=== PATIENT | female | born 1935 | race African-American/Black ===

== ENCOUNTER 2017-03-28 18:51 | Emergency (ER) | payer MEDICARE ==
[2017-03-28 20:10] LABS: Basophils % (Auto) 0.8 % (0.0-1.8); Eosinophils % (Auto) 2.2 % (0.0-4.3); Hematocrit 34.4 % (30.3-42.9); Hemoglobin 11.4 gm/dl (10.1-14.3); Mean Corpuscular HGB Conc 33 % (30-34); Mean Corpuscular Hemoglobin 29 pg (28-32); Mean Corpuscular Volume 88 fl (79-97); Platelet Count 310 K/mm3 (140-440); White Blood Count 9.3 K/mm3 (4.5-11.0)
[2017-03-28 20:28] LABS: Anion Gap 23 mmol/L; BUN/Creatinine Ratio 27.85; Blood Urea Nitrogen 39 mg/dL (7-17); Calcium 9.3 mg/dL (8.4-10.2); Carbon Dioxide 19 mmol/L (22-30); Chloride 93.4 mmol/L (98-107); Glucose 348 mg/dL (65-100); Potassium 5.1 mmol/L (3.6-5.0); Sodium 130 mmol/L (137-145)
[2017-03-28 22:07] VITALS: BP 131/50
[2017-03-28] MEDS ORDERED: MORPHINE IV ONE (22:43)
[2017-03-28] MEDS ORDERED: NACL 0.9% 500 ML 500 ML IV ONE (22:44)
[2017-03-28 23:24] LABS: Bacteria,Urine 1+ /HPF (Negative); Bilirubin,Urine NEG (Negative); Blood,Urine NEG (Negative); Ketones,Urine NEG (Negative); Leukocyte Esterase,Urine NEG (Negative); Mucus,Urine FEW /HPF; Nitrite,Urine NEG (Negative); Protein,Urine <15 mg/dL mg/dL (Negative); RBC,Urine < 1.0 /HPF (0.0-6.0); Urobilinogen,Urine < 2.0 mg/dL (<2.0)
--- NOTE | 2017-03-28 23:40 | Emergency Department Report ---
ED General Adult HPI - General Chief complaint: Hyperglycemia Stated complaint: HBS Time Seen by Provider: 03/28/17 21:59 Source: patient, family Mode of arrival: Ambulatory Limitations: Language Barrier - History of Present Illness Initial comments: Patient is an 81-year-old female past medical history of coronary artery disease and diabetes who presents with elevated blood sugar. Patient is Belarusian speaking and history is obtained by daughter. Patient was taking her blood sugar today and it was in the 300s. Patient was having headache and was lightheaded for the last 3 hours. Nothing makes her symptoms better or worse. Her symptoms are not associated with any nausea or vomiting. Patient has recently had her medications adjusted she does not take any insulin and is only on metformin. She denies having any chest pain, fever, diarrhea or blood in stool. Severity scale (0 -10): 8 - Related Data Allergies Allergy/AdvReac Type Severity Reaction Status Date / Time No Known Allergies Allergy Unverified 10/07/13 09:03 ED Review of Systems ROS: Stated complaint: HBS Other details as noted in HPI Constitutional: weakness. denies: chills, fever Eyes: denies: eye pain, eye discharge, vision change ENT: denies: ear pain, throat pain Respiratory: denies: cough, shortness of breath, wheezing Cardiovascular: denies: chest pain, palpitations Endocrine: no symptoms reported Gastrointestinal: denies: abdominal pain, nausea, diarrhea Genitourinary: denies: urgency, dysuria, discharge Musculoskeletal: denies: back pain, joint swelling, arthralgia Skin: denies: rash, lesions Neurological: headache Psychiatric: denies: anxiety, depression Hematological/Lymphatic: denies: easy bleeding, easy bruising ED Past Medical Hx - Past Medical History Previous Medical History?: Yes Hx Hypertension: Yes Hx Diabetes: Yes Additional medical history: heart pblm - Surgical History Past Surgical History?: Yes Additional Surgical History: heart cath, and tumor removed from abd 10/2016 - Social History Smoking Status: Never Smoker Substance Use Type: None ED Physical Exam - General Limitations: Language Barrier General appearance: alert, in no apparent distress - Head Head exam: Present: atraumatic - Eye Eye exam: Present: normal appearance - ENT ENT exam: Present: mucous membranes moist - Neck Neck exam: Present: normal inspection - Respiratory Respiratory exam: Present: normal lung sounds bilaterally. Absent: respiratory distress - Cardiovascular Cardiovascular Exam: Present: regular rate, normal rhythm. Absent: systolic murmur, diastolic murmur, rubs, gallop - GI/Abdominal GI/Abdominal exam: Present: soft, normal bowel sounds - Extremities Exam Extremities exam: Present: normal inspection - Back Exam Back exam: Present: normal inspection - Psychiatric Psychiatric exam: Present: normal affect, normal mood - Skin Skin exam: Present: warm, dry, intact, normal color. Absent: rash ED Course Vital Signs 03/28/17 03/28/17 19:25 22:05 Temperature 97.4 F L Pulse Rate 88 80 Respiratory 20 14 Rate Blood Pressure 175/75 Blood Pressure 131/50 [Left] O2 Sat by Pulse 99 98 Oximetry - Reevaluation(s) Reevaluation #1: 03/29/17 01:06 Patient is feeling better after morphine. Patient states that she feels good and would likely. Discussed diagnostic positive patient and stated that she needs to follow up with her primary care doctor. Also gave patient some instructions on to reduce her carbohydrate intake. Reevaluation #2: 03/29/17 01:13 Patient's most recent blood sugar is 258. I will send patient home. ED Medical Decision Making - Lab Data Result diagrams: 03/28/17 19:54 03/28/17 19:54 Laboratory Results - last 24 hr 03/28/17 03/28/17 03/28/17 19:42 19:54 19:54 WBC 9.3 RBC 3.90 Hgb 11.4 Hct 34.4 MCV 88 MCH 29 MCHC 33 RDW 13.0 L Plt Count 310 Lymph % (Auto) 31.9 Sevier % (Auto) 11.9 H Eos % (Auto) 2.2 Baso % (Auto) 0.8 Lymph # 3.0 Sevier # 1.1 H Eos # 0.2 Baso # 0.1 Seg Neutrophils % 53.2 Seg Neutrophils # 5.0 VBG pH Sodium 130 L Potassium 5.1 H Chloride 93.4 L Carbon Dioxide 19 L Anion Gap 23 BUN 39 H Creatinine 1.4 H Estimated GFR 36 BUN/Creatinine Ratio 27.85 Glucose 348 H POC Glucose 393 H Calcium 9.3 Troponin T < 0.010 Urine Color Urine Turbidity Urine pH Ur Specific Valentine Urine Protein Urine Glucose (UA) Urine Ketones Urine Blood Urine Nitrite Urine Bilirubin Urine Urobilinogen Ur Leukocyte Esterase Urine WBC (Auto) Urine RBC (Auto) U Epithel Cells (Auto) Urine Bacteria (Auto) Urine Mucus 03/28/17 03/28/17 19:54 23:03 WBC RBC Hgb Hct MCV MCH MCHC RDW Plt Count Lymph % (Auto) Sevier % (Auto) Eos % (Auto) Baso % (Auto) Lymph # Sevier # Eos # Baso # Seg Neutrophils % Seg Neutrophils # VBG pH 7.405 Sodium Potassium Chloride Carbon Dioxide Anion Gap BUN Creatinine Estimated GFR BUN/Creatinine Ratio Glucose POC Glucose Calcium Troponin T Urine Color Straw Urine Turbidity Clear Urine pH 6.0 Ur Specific Valentine 1.006 Urine Protein <15 mg/dl Urine Glucose (UA) >=500 Urine Ketones Neg Urine Blood Neg Urine Nitrite Neg Urine Bilirubin Neg Urine Urobilinogen < 2.0 Ur Leukocyte Esterase Neg Urine WBC (Auto) 1.0 Urine RBC (Auto) < 1.0 U Epithel Cells (Auto) 1.0 Urine Bacteria (Auto) 1+ Urine Mucus Few - EKG Data -: EKG Interpreted by Wa - EKG Data 03/29/17 01:07 Normal sinus rhythm, septal infarct age undetermined no ST segment elevation T- wave flattening in V6 and V5. - Radiology Data Radiology results: image reviewed Chest x-ray shows no acute pulmonary process, no pneumothorax and no cardiomegaly. - Medical Decision Making Chief medical diagnosis: Hyperglycemia Differential medical diagnosis, DKA, HONK, acute kidney injury We'll get CBC, troponin, EKG, CMP, blood gas, chest x-ray Patient just has hyperglycemia will give patient fluids lower lid sugar of less than 300 bolus and patient home with dietary modification instructions. Critical care attestation.: If time is entered above; I have spent that time in minutes in the direct care of this critically ill patient, excluding procedure time. ED Disposition Clinical Impression: Hyperglycemia due to type 2 diabetes mellitus Qualifiers: Diabetes mellitus watermaster insulin use: without shelter use Qualified Code(s ): E11.65 - Type 2 diabetes mellitus with hyperglycemia Disposition: DC-01 TO HOME OR SELFCARE Is pt being admited?: No Does the pt Need Aspirin: No Condition: Good Instructions: Diabetes Mellitus Type 2 in Adults (ED), Meal Planning with Diabetes Exchanges (DC) Referrals: SHANDA VÁZQUEZ MD [Primary Care Provider] - 3-5 Days Time of Disposition: 01:01
--- NOTE | 2017-03-29 08:22 | XRay Report ---
Chest 2 views. History: Shortness of breath. Findings: The heart and lungs reveal no acute or significant abnormalities.
== END 2017-03-29 01:46 | disposition home or self-care (01) ==
LOC: ED 18:51
DX: E11.65 Type 2 diabetes mellitus with hyperglycemia (principal); I10 Essential (primary) hypertension
CPT/HCPCS: 36415; 71020; 80048; 81001; 82805; 82962; 84484; 85025; 93005; 93010; 96374; 99284; J2270; J7040

== ENCOUNTER 2018-11-19 17:19 | Emergency (ER) | payer MEDICARE ==
[2018-11-19] MEDS ORDERED: SOLU-Medrol IV ONE (18:19)
[2018-11-19] MEDS ORDERED: ATROVENT IH ONE (18:19)
[2018-11-19] MEDS ORDERED: PROVENTIL IH ONE (18:19)
--- NOTE | 2018-11-19 18:20 | Emergency Department Report ---
ED General Adult HPI - General Chief complaint: Weakness Stated complaint: HIGH BLOOD SUGAR Time Seen by Provider: 11/19/18 18:01 Source: patient, family, RN notes reviewed Mode of arrival: Ambulatory Limitations: Language Barrier - History of Present Illness Initial comments: Primary care Dr.: Dr. Tay Research Leader: Patient's [id number], Ms. César Tay; [phone] and patient's son, Mr Flash Millan; [phone] This is an 83-year-old female. The patient specifically requested that her family translated for her. 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 Patient was at her primary care doctor's office yesterday, was evaluated for probable influenza. She reports a positive influenza swab, and reports being placed on Tamiflu. She reports left eye pain and swelling and drainage over the past couple days. The symptoms are constant, worsened with palpation, decreased with rest, and do not radiate anywhere. The patient makes no complaint of severe headache, neck pain, chest pain, or abdominal pain. She has a cough and shortness of breath which appeared to be chronic. She denies urinary symptoms. She was prescribed multiple medications, including azithromycin, promethazine, Mucinex, Tylenol, Tamiflu, and prednisone ophthalmic, in addition to an antihist amine. She has not taken the prednisone ophthalmic, but reports compliance with the other medications. In 2017, patient found to have a creatinine of 1.4, with a GFR of 36. -: Gradual, days(s) Location: eyes (left eye) Radiation: non-radiation Improves with: rest Worsens with: movement - Related Data Previous Rx's Medication Instructions Recorded Last Taken Type Albuterol Sulfate [Proair 90 mcg IH Q4HR PRN #2 aer.[email or web address] 11/20/18 Unknown Rx Respiclick] Bacitracin [Bacitracin Ophth] 1 applicatio OP TID #1 tube 11/20/18 Unknown Rx Doxycycline [Vibramycin CAP] 100 mg PO Q12HR #10 capsule 11/20/18 Unknown Rx Allergies Allergy/AdvReac Type Severity Reaction Status Date / Time No Known Allergies Allergy Unverified 10/07/13 09:03 ED Review of Systems ROS: Stated complaint: HIGH BLOOD SUGAR Other details as noted in HPI Constitutional: malaise, weakness Eyes: eye pain, eye discharge ENT: congestion. denies: ear pain, throat pain, hearing loss, epistaxis Respiratory: cough Cardiovascular: edema (chronic lower extremity edema). 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 - Social History Smoking Status: Never Smoker Substance Use Type: None - Medications Home Medications: Home Medications Medication Instructions Recorded Confirmed Last Taken Type Albuterol Sulfate [Proair 90 mcg IH Q4HR PRN #2 aer.pow.ba 11/20/18 Unknown Rx Respiclick] Bacitracin [Bacitracin Ophth] 1 applicatio OP TID #1 tube 11/20/18 Unknown Rx Doxycycline [Vibramycin CAP] 100 mg PO Q12HR #10 capsule 11/20/18 Unknown Rx ED Physical Exam - General Limitations: Language Barrier General appearance: alert, in no apparent distress - Head Head exam: Present: atraumatic, normocephalic - Eye Eye exam: Present: EOMI, conjunctival injection, periorbital swelling (left- sided periorbital swelling), other (right eye is minimally injected, deformed pupil noted, consistent with prior surgical history, extraocular movements intact right eye, visual acuity intact to finger counting, color perception.). Absent: normal appearance (clear discharge noted from left eye.), nystagmus - ENT ENT exam: Present: normal exam, normal orophraynx, mucous membranes moist, normal external ear exam - Neck Neck exam: Present: normal inspection, full ROM. Absent: tenderness, meningismus - Respiratory Respiratory exam: Present: wheezes, rhonchi. Absent: respiratory distress - Cardiovascular Cardiovascular Exam: Present: regular rate, normal rhythm, normal heart sounds. Absent: bradycardia, tachycardia, irregular rhythm, systolic murmur, diastolic murmur, rubs, gallop - GI/Abdominal GI/Abdominal exam: Present: soft. Absent: distended, tenderness, guarding, rebound, rigid, pulsatile mass - Extremities Exam Extremities exam: Present: normal inspection, full ROM, pedal edema, other (2+ pulses noted in the bilateral upper, lower extremities. Compartments soft. No long bony tenderness. The pelvis is stable.). Absent: tenderness, calf tenderness - Back Exam Back exam: Present: normal inspection, full ROM. Absent: tenderness, CVA tenderness (R), paraspinal tenderness, vertebral tenderness - Neurological Exam Neurological exam: Present: alert, normal gait, other (there is no facial droop. The tongue is midline. Right-sided extraocular movements are intact bilaterally. Patient reports no baseline vision in the left eye. Left eye prosthesis extraocular movements appear to be intact. Tongue is midline. 5 out of 5 strength in 4 extremities. Walking with a steady gait. Sensation intact to light touch in 4 extremities.) - Psychiatric Psychiatric exam: Present: normal affect, normal mood - Skin Skin exam: Present: warm, dry, intact, normal color. Absent: rash ED Course Vital Signs 11/19/18 11/19/18 11/19/18 17:25 17:30 19:35 Temperature 98.5 F 98.6 F 98.4 F Pulse Rate 84 88 83 Pulse Rate [ Bilateral Throughout] Respiratory 20 17 16 Rate Respiratory Rate [Bilateral Throughout] Blood Pressure 151/61 Blood Pressure 143/61 147/88 [Right] O2 Sat by Pulse 96 98 96 Oximetry 11/19/18 11/19/18 11/19/18 20:03 21:00 21:25 Temperature Pulse Rate Pulse Rate [ 94 H 96 H Bilateral Throughout] Respiratory 18 Rate Respiratory 18 18 Rate [Bilateral Throughout] Blood Pressure Blood Pressure [Right] O2 Sat by Pulse 96 Oximetry 11/19/18 22:03 Temperature Pulse Rate 98 H Pulse Rate [ Bilateral Throughout] Respiratory 18 Rate Respiratory Rate [Bilateral Throughout] Blood Pressure Blood Pressure 146/56 [Right] O2 Sat by Pulse 96 Oximetry - Reevaluation(s) Reevaluation #1: 11/19/18 20:26 Differential diagnosis, including but not limited to: Dependent edema, worsening renal insufficiency, asthma, COPD, bronchitis, congestive heart failure, fluid overload, worsening renal insufficiency, periorbital cellulitis, retro-orbital cellulitis, viral syndrome, influenza Assessment and plan: 83-year-old female with a primary complaint of malaise and fatigue, with left eye discomfort, subjective swelling, and clear discharge. The patient is afebrile with reassuring vital signs and walks with a steady gait. Pertinent physical exam findings include wheezing, lower extremity edema, unclear left-sided ocular discharge, as well as periorbital tenderness, and some hyperpigmentation. Patient has a known history of renal insufficiency. We will treat her symptoms, give her nebulizer therapy and steroids for her wheezing, x-ray of the chest appears to be clear, obtain orbital CT, X ray of the chest, CT scan of the chest, and reassess after her data points have resulted. Reevaluation #2: 11/20/18 00:33 Patient reassess. Feeling improved. CT scan of the orbits negative for acute disease. Clear discharge appears to be improving from the eye. CT scan of the chest suggests emphysematous changes, questionable right lower lobe atelectasis versus pneumonia. Upon review of the patient's medications, she was recently prescribed azithromycin, and condition to Tamiflu. She is saturating well, and her wheezing has resolved. Discussed findings with patient and family using dry cleaning checker. Patient endorses a desire to go home and follow-up with outpatient primary care. This is discussed using the [id number] as a dry cleaning checker, and both patient and family are amenable to this plan of care. We will broaden coverage to doxy cycline and azithromycin, prescribed topical ocular antibiotics, encouraged patient to follow up with outpatient ophthalmology. Return precautions are reviewed. ED Medical Decision Making - Lab Data Result diagrams: 11/19/18 18:32 11/19/18 18:32 Vital Signs 11/19/18 11/19/18 11/19/18 17:25 17:30 19:35 Temperature 98.5 F 98.6 F 98.4 F Pulse Rate 84 88 83 Respiratory 20 17 16 Rate Blood Pressure 151/61 Blood Pressure 143/61 147/88 [Right] O2 Sat by Pulse 96 98 96 Oximetry Labs 11/19/18 11/19/18 11/19/18 18:32 18:32 18:32 WBC 13.1 H RBC 3.39 L Hgb 10.2 Hct 30.4 MCV 90 MCH 30 MCHC 33 RDW 13.7 Plt Count 285 Lymph % (Auto) 19.6 Hooker % (Auto) 13.6 H Eos % (Auto) 1.7 Baso % (Auto) 0.6 Lymph # 2.6 Hooker # 1.8 H Eos # 0.2 Baso # 0.1 Seg Neutrophils % 64.5 Seg Neutrophils # 8.4 H PT 13.6 INR 0.98 Sodium 134 L Potassium 4.6 Chloride 101.0 Carbon Dioxide 17 L Anion Gap 21 BUN 19 H Creatinine 1.2 Estimated GFR 43 BUN/Creatinine Ratio 16 Glucose 271 H Lactic Acid Magnesium 1.80 Total Bilirubin 0.50 AST 74 H ALT 87 H Alkaline Phosphatase 156 H Total Protein 7.5 Albumin 3.2 L Albumin/Globulin Ratio 0.7 Urine Bilirubin Urine RBC (Auto) U Epithel Cells (Auto) 11/19/18 11/19/18 18:32 19:00 WBC RBC Hgb Hct MCV MCH MCHC RDW Plt Count Lymph % (Auto) Hooker % (Auto) Eos % (Auto) Baso % (Auto) Lymph # Hooker # Eos # Baso # Seg Neutrophils % Seg Neutrophils # PT INR Sodium Potassium Chloride Carbon Dioxide Anion Gap BUN Creatinine Estimated GFR BUN/Creatinine Ratio Glucose Lactic Acid 1.80 Magnesium Total Bilirubin AST ALT Alkaline Phosphatase Total Protein Albumin Albumin/Globulin Ratio Urine Bilirubin Neg Urine RBC (Auto) 1.0 U Epithel Cells (Auto) 11.0 - Radiology Data Radiology results: report reviewed, image reviewed interpreted by me: X-ray of the chest is negative for acute disease. Print Report Referring Physician: WALLACE MCMAHAN Patient Name: FLASH MILLAN Date of : 1935 Sex: Female Report Date: 2018-11-19 Report Status: [place] [address] Cat Scan Report Signed Patient: FLASH MILLAN MR#: [id number] : 1935 Acct:[id number] Age/Sex: 83 / F ADM Date: 11/19/18 Loc: ED Attending Dr: Ordering Physician: WALLACE MCMAHAN MD Date of Service: 11/19/18 Procedure(s): CT chest wo con Accession Number(s): [id number] cc: WALLACE MCMAHAN MD PROCEDURE: CT CHEST WO CON TECHNIQUE: Computerized axial tomography of the chest was performed without contrast material. This study is performed without intravenous contrast and the sensitivity for pathology, including neoplasms, adenopathy, abscess, pulmonary embolism and aortic dissection, is reduced. CT DOSE LENGTH PRODUCT: 1085.6 mGycm HISTORY: cough wheeze sob COMPARISONS: None . FINDINGS: This study is limited due to lack of contrast. A small irregular area of consolidation versus atelectasis is noted involving medial segment right lower lobe measuring 2.6 x 1.9 cm. There are no obvious mass lesions as visualized on this noncontrast study. Bilateral pleural spaces are clear. Aorta is of normal caliber. Coronary arterial calcification is noted. There is no lymphadenopathy. Thyroid demonstrates a small hypodense nodule measuring 0.8 cm in the right lobe. Vertebral height is normal. Extensive marginal osteophyte formation is noted involving thoracic and lumbar spine. IMPRESSION: A small area of consolidation versus atelectasis medial segment right lower lobe. A postcontrast study is recommended to rule out any central obstructive lesion. Coronary arterial calcification Small right lobe thyroid nodule. This document is electronically signed by Sosa Stephens MD., November 19 2018 10:01:38 PM ET Transcribed By: [facility] [place], [place] Dictated By: SOSA STEPHENS Electronically Authenticated By: SOSA STEPHENS Signed Date/Time: 11/19/182202 Print Report Referring Physician: WALLACE MCMAHAN Patient Name: FLASH MILLAN Date of : 1935 Sex: Female Report Date: 2018-11-19 Report Status: Finalized Findings [place] [id number] Cat Scan Report Signed Patient: FLSAH MILLAN MR#: [id number] : 1935 Acct:[id number] Age/Sex: 83 / F ADM Date: 11/19/18 Loc: ED Attending Dr: Ordering Physician: WALLACE MCMAHAN MD Date of Service: 11/19/18 Procedure(s): CT orbit/ear/fossa wo con Accession Number(s): [id number] cc: WALLACE MCMAHAN MD PROCEDURE: CT ORBIT/EAR/FOSSA WO CON TECHNIQUE: Computerized axial tomography of the orbits was performed without contrast material. Automated exposure control, adjustment of mA and/or kV according to patient size, or iterative reconstruction dose optimization techniques were utilized. CT DOSE LENGTH PRODUCT: 407.2 mGycm HISTORY: left eye pain reports prosthesis COMPARISONS: None FINDINGS: Bilateral facial bones including NaSal bones, zygomatic arches, orbital mariee, pterygoid plates and mandible or intact. Bilateral temporomandibular joints demonstrate normal alignment. Mild degree mucosal thickening is noted involving multiple bilateral sinuses. There is no significant deviation of the nasal septum. Bilateral orbital contents including eyeballs and retrobulbar structures are within normal limits. IMPRESSION: Bilateral orbits are unremarkable. This document is electronically signed by Sosa Stephens MD., November 19 2018 10:05:54 PM ET Transcribed By: [facility] [place], [place] Dictated By: SOSA STEPHENS Electronically Authenticated By: SOSA STEPHENS Signed Date/Time: 11/19/18 4550 Critical care attestation.: If time is entered above; I have spent that time in minutes in the direct care of this critically ill patient, excluding procedure time. ED Disposition Clinical Impression: Left eye pain, History of influenza Disposition: - TO HOME OR SELFCARE Is pt being admited?: No Does the pt Need Aspirin: No Condition: Good Additional Instructions: Continue current outpatient medications. Follow-up with any of the listed ophthalmology physicians within the next 3-5 days. Follow up with her primary care doctor for repeat respiratory check up will return to the emergency room for repeat respiratory evaluation in the next 3-5 days. Return to the emergency room right away or projectile vomiting, change in mental status, confusion, inability to speak, inability to breathe, new, worsening or different symptoms. Referrals: MAYURI SANTIAGO MD [Staff Physician] - 3-5 Days DINORA HARO MD [Staff Physician] - 3-5 Days JUDY REID MD [Staff Physician] - 3-5 Days WALLACE HOWELL MD [Staff Physician] - 3-5 Days JORGE LOWRY MD [Staff Physician] - 3-5 Days Forms: Accompanied Note
[2018-11-19 19:07] LABS: Basophils # (Auto) 0.1 K/mm3 (0.0-0.1); Basophils % (Auto) 0.6 % (0.0-1.8); Eosinophils # (Auto) 0.2 K/mm3 (0.0-0.4); Eosinophils % (Auto) 1.7 % (0.0-4.3); Hematocrit 30.4 % (30.3-42.9); Hemoglobin 10.2 gm/dl (10.1-14.3); Lymphocytes # (Auto) 2.6 K/mm3 (1.2-5.4); Lymphocytes % (Auto) 19.6 % (13.4-35.0); Mean Corpuscular HGB Conc 33 % (30-34); Mean Corpuscular Volume 90 fl (79-97); Monocytes # (Auto) 1.8 K/mm3 (0.0-0.8); Monocytes % (Auto) 13.6 % (0.0-7.3); Platelet Count 285 K/mm3 (140-440); Red Blood Count 3.39 M/mm3 (3.65-5.03); Red Cell Distribution Width 13.7 % (13.2-15.2)
[2018-11-19 19:16] LABS: INR 0.98 (0.87-1.13)
[2018-11-19 19:46] LABS: Alanine Aminotransferase 87 units/L (7-56); Albumin 3.2 g/dL (3.9-5); Blood Urea Nitrogen 19 mg/dL (7-17)
[2018-11-19 20:16] LABS: BUN/Creatinine Ratio 16
[2018-11-19 20:25] LABS: Bacteria,Urine 1+ /HPF (Negative); Bilirubin,Urine NEG (Negative); Blood,Urine SM (Negative); Color,Urine Straw (Yellow); Protein,Urine <15 mg/dL mg/dL (Negative); Urobilinogen,Urine < 2.0 mg/dL (<2.0)
[2018-11-19 20:37] LABS: Calcium 8.8 mg/dL (8.4-10.2)
--- NOTE | 2018-11-19 21:42 | XRay Report ---
PROCEDURE: XR CHEST 1V AP TECHNIQUE: Chest radiograph single view. HISTORY: cough wheeze dyspnea COMPARISONS: None . FINDINGS: Lungs are hyperinflated. There are no confluent infiltrates or mass lesions. Pleural spaces are clear . There is mild cardiomegaly. Pleural spaces are clear. IMPRESSION: COPD Mild degree cardiomegaly This document is electronically signed by Marshall Stephens MD., November 19 2018 09:40:43 PM ET
--- NOTE | 2018-11-19 22:03 | Cat Scan Report ---
PROCEDURE: CT CHEST WO CON TECHNIQUE: Computerized axial tomography of the chest was performed without contrast material. This study is performed without intravenous contrast and the sensitivity for pathology, including neoplasm s, adenopathy, abscess, pulmonary embolism and aortic dissection, is reduced. CT DOSE LENGTH PRODUCT: 1085.6 mGycm HISTORY: cough wheeze sob COMPARISONS: None . FINDINGS: This study is limited due to lack of contrast. A small irregular area of consolidation versus atelect asis is noted involving medial segment right lower lobe measuring 2.6 x 1.9 cm. There are no obvious mass lesions as visualized on this noncontrast study. Bilateral pleural spaces are clear. Aorta is of normal caliber. Coronary arterial calcification is noted. There is no lymphadenopathy. Thyroid demon strates a small hypodense nodule measuring 0.8 cm in the right lobe. Vertebral height is normal. Exte nsive marginal osteophyte formation is noted involving thoracic and lumbar spine. IMPRESSION: A small area of consolidation versus atelectasis medial segment right lower lobe. A postc ontrast study is recommended to rule out any central obstructive lesion. Coronary arterial calcification Small right lobe thyroid nodule. This document is electronically signed by Marshall Stephens MD., November 19 2018 10:01:38 PM ET
--- NOTE | 2018-11-19 22:07 | Cat Scan Report ---
PROCEDURE: CT ORBIT/EAR/FOSSA WO CON TECHNIQUE: Computerized axial tomography of the orbits was performed without contrast material. Auto mated exposure control, adjustment of mA and/or kV according to patient size, or iterative reconstruc tion dose optimization techniques were utilized. CT DOSE LENGTH PRODUCT: 407.2 mGycm HISTORY: left eye pain reports prosthesis COMPARISONS: None FINDINGS: Bilateral facial bones including NaSal bones, zygomatic arches, orbital mariee, pterygoid plates and m andible or intact. Bilateral temporomandibular joints demonstrate normal alignment. Mild degree mucos al thickening is noted involving multiple bilateral sinuses. There is no significant deviation of the nasal septum. Bilateral orbital contents including eyeballs and retrobulbar structures are within no rmal limits. IMPRESSION: Bilateral orbits are unremarkable. This document is electronically signed by Marshall Stephens MD., November 19 2018 10:05:54 PM ET
[2018-11-19 22:16] VITALS: BP 146/56
[2018-11-20] MEDS ORDERED: TYLENOL PO STA (00:33)
== END 2018-11-20 00:59 | disposition home or self-care (01) ==
LOC: ED 17:19
DX: H57.12 Ocular pain, left eye (principal); R06.2 Wheezing
CPT/HCPCS: 36415; 70480; 71045; 71250; 80053; 81001; 82140; 83735; 83880; 84443; 85025; 85610; 93005; 93010; 94640; 96374; 99285; J2930; 94644